=== PATIENT | female | born 1975 | race African-American/Black ===

== ENCOUNTER 2017-07-25 21:52 | Emergency (ER) | payer MEDICAID, OTHER ==
[2017-07-25] MEDS ORDERED: Metoclopramide HCl 10 MG/2 ML VIAL ONE (22:19)
[2017-07-25] MEDS ORDERED: diphenhydrAMINE HCl 50 MG/ML 1 ML VIAL ONE (22:19)
[2017-07-25] MEDS ORDERED: Ketorolac Tromethamine 30 MG/ML VIAL ONE (22:19)
== END 2017-07-26 00:36 | disposition home or self-care (01) ==
LOC: SCSER 21:52
DX: G43.909 Migraine, unspecified, not intractable, without status migrainosus (principal); I10 Essential (primary) hypertension; K21.9 Gastro-esophageal reflux disease without esophagitis; Z79.899 Other long term (current) drug therapy
CPT/HCPCS: 96361; 96365; 96375; J1200; J1885; J2765

== ENCOUNTER 2018-01-02 10:56 | Emergency (ER) | payer OTHER ==
[2018-01-02] MEDS ORDERED: Metoclopramide HCl 10 MG/2 ML VIAL ONE (11:13)
--- NOTE | 2018-01-02 12:00 | CT ---
CT BRAIN WITHOUT CONTRAST: Date: 01/02/18 HISTORY: Headache. COMPARISON: None. FINDINGS: No acute territorial infarct or hemorrhage. No midline shift or mass effect. Ventricular size and ext ra-axial CSF spaces are normal. The calvarium is intact. The paranasal sinuses and mastoids are clear. IMPRESSION: No acute intracranial abnormality. POS: [facility]
== END 2018-01-02 12:15 | disposition home or self-care (01) ==
LOC: SCSER 10:56
DX: R51 Headache (principal); I10 Essential (primary) hypertension; K21.9 Gastro-esophageal reflux disease without esophagitis; Z79.899 Other long term (current) drug therapy
CPT/HCPCS: 70450; 96365; J2765

== ENCOUNTER 2018-02-22 22:25 | Emergency (ER) | payer OTHER, SELFPAY | END 2018-02-22 22:49 | disposition home or self-care (01) | LOC: SCSER 22:25 | DX: R60.9 Edema, unspecified (principal); I10 Essential (primary) hypertension; K21.9 Gastro-esophageal reflux disease without esophagitis; Z79.899 Other long term (current) drug therapy | CPT/HCPCS: 99283 ==

== ENCOUNTER 2020-02-11 07:37 | Emergency (ER) | payer OTHER, SELFPAY ==
--- NOTE | 2020-02-11 08:22 | ULT ---
Venous duplex sonogram right lower extremity HISTORY: Right leg pain and edema. IMPRESSION : The right common femoral vein and greater saphenous junction were evaluated along with the femoral, d eep femoral, popliteal, and posterior tibial veins. There is good color and spectral Doppler flow, compression, and augmentation. IMPRESSION : Normal exam.
== END 2020-02-11 08:38 | disposition home or self-care (01) ==
LOC: ERS 07:37
DX: M25.561 Pain in right knee (principal); I10 Essential (primary) hypertension; K21.9 Gastro-esophageal reflux disease without esophagitis; G43.909 Migraine, unspecified, not intractable, without status migrainosus

== ENCOUNTER 2020-03-06 20:18 | Emergency (ER) | payer SELFPAY ==
--- NOTE | 2020-03-07 08:39 | RAD ---
RIGHT KNEE 4 VIEWS: DATE: 03/06/2020. COMPARISON: None. HISTORY: Pain. FINDINGS: No displaced fracture or dislocation. No knee joint effusion is appreciated. IMPRESSION: No acute findings. POS: [facility]
== END 2020-03-06 23:26 | disposition left against medical advice (07) ==
LOC: ERS 20:18
DX: Z53.21 Procedure and treatment not carried out due to patient leaving prior to being seen by health care provider (principal)

== ENCOUNTER 2023-11-21 13:48 | Emergency (ER) | payer BC ==
[~2023-11-21 13:48] MED LIST: Iopamidol-370 76% 500 ML MDV (1 ML CHARGE) ONE
[2023-11-21] MEDS ORDERED: diphenhydrAMINE 50 MG/ML VIAL ONE (14:02)
[2023-11-21] MEDS ORDERED: Metoclopramide HCl 10 MG (2 mL) VIAL ONE (14:02)
[2023-11-21] MEDS ORDERED: niCARdipine 25 MG/10 ML SDV ONE (14:10)
[2023-11-21] MEDS ORDERED: Propofol 1,000 MG/100 ML VIAL IV ONE (14:21)
[2023-11-21] MEDS ORDERED: Etomidate 40 MG (20 mL) VIAL ONE (14:21)
[2023-11-21] MEDS ORDERED: Rocuronium Bromide 10 MG/ML (10ML VIAL) ONE (14:22)
[2023-11-21 15:15] LABS: Actual Bicarbonate (HCO3a) 21.3 mEq/L (22-28); Analyzer IN Cardio ER; Base Excess (BEa) 1.3 mEq/L (-2.0 to +3.0); Calcium, Ionized (arterial) 1.13 mmol/L (1.12-1.30); Carboxyhemoglobin (COHb) 0.5 gm% (0.0-3.0); Hematocrit-ABG 41 % (36.0-47.0); O2 Tension (PaO2), arterial 262.2 mmHg (80.0-100.0); Potassium - ABG Lab 3.08 mmol/L (3.70-5.30); pH, Arterial 7.584 (7.35-7.45)
[2023-11-21 15:16] LABS: #Eosinphils 0.1 thou/uL (0.0-0.7); #Monocytes 0.2 thou/uL (0.11-0.59); #Neutrophils 2.7 thou/uL (1.40-6.50); %Basophils 0.4 % (0.0-1.0); %Eosinophils 1.5 % (0.0-10.0); %Lymphocytes 34.7 % (21.0-51.0); %Monocytes 4.2 % (0.0-10.0); Hematocrit 44.9 % (36.0-47.0); Hemoglobin 13.9 g/dL (12.0-16.0); Mean Corpuscular Hemoglobin 26.8 pg (27.0-31.0); Mean Corpuscular Volume 86.7 fl (78.0-98.0); Mean Platelet Volume 9.6 fL (7.4-10.4); Platelet Count 251 10x3/uL (130-400); RBC Distribution Width 15.5 % (11.5-14.5); Red Blood Cell (RBC) Count 5.18 mill/uL (4.20-5.40); White Blood Cell (WBC) Count 4.6 10x3/uL (4.8-10.8)
[2023-11-21 15:18] LABS: Puncture Site Right Brachial
[2023-11-21] MEDS ORDERED: Fentanyl CADD 100 ML IV SCH (15:30)
[2023-11-21 15:31] LABS: ALT (SGPT) 18 U/L (8-55); AST (SGOT) 25 U/L (5-34); Albumin 4.8 g/dL (3.5-5.0); Alkaline Phosphatase 113 U/L (40-110); Anion Gap 15 mmol/L (10-20); BUN (Urea Nitrogen) 12 mg/dL (7.0-18.7); Bilirubin, Total 0.5 mg/dL (0.2-1.2); Calc. Creatinine Clearance 0 mL/min (70-130); Calcium 10.3 mg/dL (7.8-10.44); Carbon Dioxide 20 mmol/L (22-29); Chloride 103 mmol/L (98-107); Estimated GFR 82; Globulin 4.5 g/dL (2.4-3.5); Glucose 102 mg/dL (70-105); Potassium 2.8 mmol/L (3.5-5.1); Protein, Total 9.3 g/dL (6.0-8.3); Sodium 135 mmol/L (136-145)
[2023-11-21 15:32] LABS: Troponin I Less than 0.010 ng/mL (< 0.028)
[2023-11-21 15:33] LABS: BHCG - Serum Negative (NEGATIVE); Pregs Control Background? CLEAR/WHITE (CLR/WHITE); Pregs Control Bar Appear? YES (CONTROL BAR)
[2023-11-21] MEDS ORDERED: Mannitol 12.5 GM/50 ML IV SCH (16:00)
[2023-11-21] MEDS ORDERED: manNITOL 20% 0 ML ONE (16:00)
[2023-11-21] MEDS ORDERED: Potassium Chloride 20 MEQ (100 mL) BAG ONE (16:25)
[2023-11-21 16:37] LABS: PTT Greater than 250.0 sec (22.9-36.1)
[2023-11-21 16:38] LABS: Prothrombin Time Greater than 150.0 sec (12.0-14.7)
== END 2023-11-21 16:40 | disposition short-term general hospital (02) ==
LOC: ERS 13:48
DX: I16.1 Hypertensive emergency (principal); E87.6 Hypokalemia; I67.1 Cerebral aneurysm, nonruptured; R29.710 NIHSS score 10; I10 Essential (primary) hypertension; Z55.6 Problems related to health literacy
CPT/HCPCS: 31500; 36416; 43753; 70450; 70496; 70498; 71045; 80053; 82805; 83735; 84484; 84703; 85025; 85610; 85730; 93005; 94002; 96374; 96375; J1200; J2150; J2704; J2765; J3010; J3480; J7799; Q9967